=== PATIENT | female | born 1995 | race Caucasian/White ===

== ENCOUNTER → 2018-12-19 | Outpatient (CLI) | payer BC ==
[~2018-12-19] MED LIST: ALBU90OI; AMOX875 PO; ASPI81CH PO; CYCL10 PO; ESCI10 PO; FLUT110OIA; HYDACE5 PO; HYDR1TAB94 PO; IBUP800 PO; LETR2.5 PO; METF500 PO; NAPR500 PO; Norco 5-325 Ta1 EACH PO; PROM25 PO; Percocet 5-3251 EACH PO; Prenatabs FA T1 EACH PO; SERT25 PO; SPIR50 PO; Ventolin/Prove6.7 GM INH; Verotin-Gr Cap1 EACH PO
== END | disposition home or self-care (01) ==
LOC: LAB SHORT 15:24 → LAB 15:24
PROVIDERS: Nurse Practitioner Obstetrics & Gynecology
DX: O60.03 Preterm labor without delivery, third trimester (principal)
CPT/HCPCS: 82731

== ENCOUNTER 2019-02-06 20:23 | Inpatient (IN) | payer BC, OTHER ==
[~2019-02-06] VITALS: Ht 160 cm; Wt 85.0 kg
[2019-02-06] MEDS ORDERED: Verotin-Gr Cap1 EACH PO (20:35)
[2019-02-06 20:45] LABS: BASOPHILS ABSOLUTE AUTO 0.02 K/mm3 (0.00-0.23); BASOPHILS PERCENT AUTO 0 % (0-2); EOSINOPHILS ABSOLUTE AUTO 0.13 K/mm3 (0.00-0.68); EOSINOPHILS PERCENT AUTO 1 % (0-6); Hemoglobin 12.5 g/dL (11.5-16.0); IMMATURE GRAN ABSOLUTE AUTO 0.04 K/mm3 (0.00-0.10); IMMATURE GRAN PERCENT AUTO 0 % (0-1); LYMPHOCYTES ABSOLUTE AUTO 2.05 K/mm3 (0.84-5.20); LYMPHOCYTES PERCENT AUTO 18 % (21-46); MONOCYTES ABSOLUTE AUTO 0.55 K/mm3 (0.16-1.47); MONOCYTES PERCENT AUTO 5 % (4-13); NEUTROPHILS ABSOLUTE AUTO 8.73 K/mm3 (1.96-9.15); NEUTROPHILS PERCENT AUTO 76 % (41-73); Platelet Count 116 K/mm3 (150-400); White Blood Cell Count 11.52 K/mm3 (4.00-11.30)
[2019-02-06 21:02] LABS: Hematocrit 40.7 % (33.0-51.0); Mean Corpuscular HGB 24.8 pg (26.0-34.0); Mean Corpuscular HGB Conc 30.7 g/dL (31.5-36.5); Mean Corpuscular Volume 81 fL (80-100); Red Blood Cell Count 5.05 M/mm3 (3.80-5.20)
[2019-02-06 21:05] LABS: Alanine Aminotransfer (ALT/SGP 16 U/L (12-78); Albumin, Blood 2.9 g/dL (3.4-5.0); Albumin/Globulin Ratio 0.8 (0.8-1.8); Alk Phos 172 U/L (50-136); Anion Gap 8 mmol/L (6-16); Aspartate Aminotrans (AST/SGOT 15 U/L (12-37); Bilirubin, Direct <0.1 mg/dL (0.0-0.3); Bilirubin, Indirect Unable to Calculate mg/dL (0.1-0.7); Bilirubin, Total 0.2 mg/dL (0.1-1.0); Blood Urea Nitrogen 5 mg/dL (8-24); Bun/Creatinine Ratio 15.6 (12.0-20.0); CO2, Blood 22 mmol/L (21-32); Calcium, Blood 8.9 mg/dL (8.5-10.1); Chloride, Blood 109 mmol/L (98-108); Creatinine, Blood 0.32 mg/dL (0.40-1.00); Globulin, Blood 3.8 g/dL (2.2-4.0); Glomerular Filtration Rate >60 (60-); Glucose, Blood 105 mg/dL (70-99); Potassium, Blood 3.4 mmol/L (3.5-5.5); Sodium, Blood 139 mmol/L (136-145); Total Protein, Blood 6.7 g/dL (6.4-8.2)
--- NOTE | 2019-02-07 11:00 | NUR ---
MY LABOR TEACHING DONE. PT ON BALL WITH LOTS OF SUPPORT, HER SO, MOM, SISTER, AND MOTHER IN [place]. DISCUSSED PATERNITY PAPERWORK, SHE HAS RECENTLY FINALIZED HER DIVORCE IN [place]. AWARE THAT THEY CAN'T SIGN PATERNITY. STATE CARD GIVEN FOR INFO AFTER BABY IS BORN. NANETTE HUMPHRIES IS INVOLVED. PT IS BEING INDUCED FOR MILD GEST HYPERTENSION, 24 HOUR URINE AROUND 200. PLANS AN EPIDURAL. PLANS BRF. AWATING WONDERLY VISIT TO DECIDE TO START PITOCIN OR PLACE ANOTHER CYTOTEC.
[2019-02-09 05:33] LABS: BASOPHILS ABSOLUTE AUTO 0.03 K/mm3 (0.00-0.23); BASOPHILS PERCENT AUTO 0 % (0-2); EOSINOPHILS ABSOLUTE AUTO 0.01 K/mm3 (0.00-0.68); EOSINOPHILS PERCENT AUTO 0 % (0-6); Hemoglobin 11.4 g/dL (11.5-16.0); IMMATURE GRAN ABSOLUTE AUTO 0.07 K/mm3 (0.00-0.10); IMMATURE GRAN PERCENT AUTO 0 % (0-1); LYMPHOCYTES ABSOLUTE AUTO 1.32 K/mm3 (0.84-5.20); LYMPHOCYTES PERCENT AUTO 7 % (21-46); MONOCYTES ABSOLUTE AUTO 0.84 K/mm3 (0.16-1.47); MONOCYTES PERCENT AUTO 5 % (4-13); NEUTROPHILS ABSOLUTE AUTO 15.82 K/mm3 (1.96-9.15); NEUTROPHILS PERCENT AUTO 87 % (41-73); Platelet Count 112 K/mm3 (150-400); White Blood Cell Count 18.09 K/mm3 (4.00-11.30)
[2019-02-09 05:36] LABS: Hematocrit 37.7 % (33.0-51.0); Mean Corpuscular HGB Conc 30.2 g/dL (31.5-36.5); Mean Corpuscular Volume 79 fL (80-100); Red Blood Cell Count 4.75 M/mm3 (3.80-5.20)
--- NOTE | 2019-02-09 11:57 | NUR ---
DISCUSEED BOARDER STATUS WITH PATIENT PT VERBALIZES UNDERSTANDING THAT SHE WILL DISCHARGED TODAY, BUT WILL REMAIN IN ROOM WITH HER NB WHO WILL REMAIN A PT. RX FOR 800MG IBUPROFEN GIVEN TO PT TO HAVE FAMILY MEMBER FILL FOR HER.
[2019-02-09] MEDS ORDERED: IBUP800 PO (14:43)
--- NOTE | 2019-02-09 19:02 | NUR ---
REPORT TO LALO POWELL
== END 2019-02-09 22:08 | disposition home or self-care (01) | DRG 807 ==
LOC: BC 20:23
PROVIDERS: ADMIT Obstetrics & Gynecology
PROC: 10E0XZZ Delivery of Products of Conception, External Approach (ICD-10-PCS; principal; 2019-02-08)
PROC: 3E0P7VZ Introduction of Hormone into Female Reproductive, Via Natural or Artificial Opening (ICD-10-PCS; 2019-02-08)
PROC: 10907ZC Drainage of Amniotic Fluid, Therapeutic from Products of Conception, Via Natural or Artificial Opening (ICD-10-PCS; 2019-02-08)
PROC: 3E0R3BZ Introduction of Anesthetic Agent into Spinal Canal, Percutaneous Approach (ICD-10-PCS; 2019-02-08)
DX: O13.4 Gestational [pregnancy-induced] hypertension without significant proteinuria, complicating childbirth (principal); Z37.0 Single live birth; O99.02 Anemia complicating childbirth; D50.9 Iron deficiency anemia, unspecified; Z3A.39 39 weeks gestation of pregnancy
CPT/HCPCS: 36415; 51702; 80053; 82248; 85025; A9270; J1885; J2001; J2405; J2590; J3010; J7120

== ENCOUNTER → 2020-10-12 | Outpatient (CLI) | payer OTHER ==
[2020-10-12 13:16] LABS: BASOPHILS ABSOLUTE AUTO 0.03 K/mm3 (0.00-0.23); BASOPHILS PERCENT AUTO 0 % (0-2); EOSINOPHILS ABSOLUTE AUTO 0.05 K/mm3 (0.00-0.68); EOSINOPHILS PERCENT AUTO 1 % (0-6); Hematocrit 46.8 % (33.0-51.0); Hemoglobin 15.2 g/dL (11.5-16.0); IMMATURE GRAN ABSOLUTE AUTO 0.02 K/mm3 (0.00-0.10); IMMATURE GRAN PERCENT AUTO 0 % (0-1); LYMPHOCYTES ABSOLUTE AUTO 1.55 K/mm3 (0.84-5.20); LYMPHOCYTES PERCENT AUTO 19 % (21-46); MONOCYTES ABSOLUTE AUTO 0.27 K/mm3 (0.16-1.47); MONOCYTES PERCENT AUTO 3 % (4-13); Mean Corpuscular HGB Conc 32.5 g/dL (31.5-36.5); Mean Corpuscular Volume 89 fL (80-100); Mean Platelet Volume 10.8 fL (9.1-12.4); NEUTROPHILS ABSOLUTE AUTO 6.22 K/mm3 (1.96-9.15); NEUTROPHILS PERCENT AUTO 77 % (41-73); Platelet Count 208 K/mm3 (150-400); RDW Coefficient Variation 13.2 % (11.7-14.2); RDW Standard Deviation 43.3 fL (35.1-46.3); Red Blood Cell Count 5.24 M/mm3 (3.80-5.20); White Blood Cell Count 8.14 K/mm3 (4.00-11.30)
[2020-10-12 13:55] LABS: Alanine Aminotransfer (ALT/SGP 22 U/L (12-78); Albumin, Blood 4.5 g/dL (3.4-5.0); Albumin/Globulin Ratio 1.3 (0.8-1.8); Alk Phos 43 U/L (40-126); Anion Gap 12 mmol/L (6-16); Aspartate Aminotrans (AST/SGOT 11 U/L (12-37); Bilirubin, Total 0.5 mg/dL (0.1-1.0); Blood Urea Nitrogen 6 mg/dL (8-24); CO2, Blood 27 mmol/L (21-32); Calcium, Blood 9.3 mg/dL (8.5-10.1); Chloride, Blood 104 mmol/L (98-108); Creatinine, Blood 0.46 mg/dL (0.40-1.00); Globulin, Blood 3.5 g/dL (2.2-4.0); Glomerular Filtration Rate >60 (60-); Glucose, Blood 90 mg/dL (70-99); Potassium, Blood 3.6 mmol/L (3.5-5.5); Sodium, Blood 143 mmol/L (136-145)
== END | disposition home or self-care (01) ==
LOC: LAB SHORT 13:10 → PLD 13:10
PROVIDERS: General Practice
DX: R89.1 Abnormal level of hormones in specimens from other organs, systems and tissues (principal)
CPT/HCPCS: 80053; 84702; 85025

== ENCOUNTER → 2021-06-08 | Outpatient (CLI) | payer OTHER ==
[2021-06-10 14:10] LABS: CHLAMYDIA BY NAA Negative (Negative); GONOCOCCUS BY NAA Negative (Negative); TRICH VAG BY NAA Negative (Negative)
== END | disposition home or self-care (01) ==
LOC: LAB SHORT 15:17
PROVIDERS: Family Medicine
DX: Z11.3 Encounter for screening for infections with a predominantly sexual mode of transmission (principal)
CPT/HCPCS: 87491; 87591; 87661

== ENCOUNTER → 2022-01-28 | Outpatient (CLI) | payer OTHER | LOC: LAB 17:55 → LAB SHORT 17:55 | DX: Z32.01 Encounter for pregnancy test, result positive (principal) | CPT/HCPCS: 84702 ==

== ENCOUNTER → 2022-02-02 | Outpatient (CLI) | payer OTHER | LOC: LAB 14:48 → LAB SHORT 14:48 | DX: Z34.01 Encounter for supervision of normal first pregnancy, first trimester (principal) | CPT/HCPCS: 84702 ==

== ENCOUNTER 2022-02-08 02:39 | Emergency (ER) | payer OTHER ==
[~2022-02-08] VITALS: Ht 160 cm; Wt 61.2 kg
[2022-02-08] MEDS ORDERED: AZIT250 PO (04:20)
== END 2022-02-08 04:40 | disposition home or self-care (01) ==
LOC: ER 02:39
DX: H66.92 Otitis media, unspecified, left ear (principal); Z87.891 Personal history of nicotine dependence
CPT/HCPCS: 99282; A9270

== ENCOUNTER → 2022-03-10 | Outpatient (CLI) | payer OTHER ==
[~2022-03-10] MED LIST changes: +AZIT250 PO
[2022-03-12 04:08] LABS: CHLAMYDIA TRACHOMATIS, NAA Negative (Negative)
== END | disposition home or self-care (01) ==
LOC: LAB SHORT 12:00 → LAB 12:00
PROVIDERS: Registered Nurse Community Health
DX: Z34.91 Encounter for supervision of normal pregnancy, unspecified, first trimester (principal)
CPT/HCPCS: 87070; 87077; 87186; 87205; 87491; 87591

== ENCOUNTER → 2022-04-13 | Outpatient (CLI) | payer OTHER ==
[2022-04-14 08:10] LABS: HIV AB/P24 AG SCREEN Non Reactive (Non Reactive)
== END | disposition home or self-care (01) ==
LOC: LAB 09:50 → LAB SHORT 09:50
PROVIDERS: Registered Nurse Community Health
DX: Z34.91 Encounter for supervision of normal pregnancy, unspecified, first trimester (principal)
CPT/HCPCS: 84443; 87389

== ENCOUNTER → 2022-07-21 | Outpatient (CLI) | payer OTHER ==
[2022-07-21 12:19] LABS: Hematocrit 37.5 % (33.0-51.0); Hemoglobin 12.2 g/dL (11.5-16.0)
== END | disposition home or self-care (01) ==
LOC: LAB SHORT 11:31 → LAB 11:31
PROVIDERS: Registered Nurse Community Health
DX: Z34.91 Encounter for supervision of normal pregnancy, unspecified, first trimester (principal)
CPT/HCPCS: 82950; 85014; 85018

== ENCOUNTER → 2022-09-14 | Outpatient (CLI) | payer OTHER | END | disposition home or self-care (01) | LOC: LAB SHORT 16:13 | DX: Z34.91 Encounter for supervision of normal pregnancy, unspecified, first trimester (principal) | CPT/HCPCS: 87081; 87150 ==

== ENCOUNTER 2022-10-04 05:01 | Inpatient (IN) | payer OTHER ==
[~2022-10-04] VITALS: Ht 160 cm; Wt 79.0 kg
[2022-10-04] MEDS ORDERED: ALBU2.5V5 INH (05:39)
[2022-10-04] MEDS ORDERED: FOLI1 PO (05:40)
[2022-10-04 05:44] LABS: BASOPHILS ABSOLUTE AUTO 0.05 K/mm3 (0.00-0.23); BASOPHILS PERCENT AUTO 0 % (0-2); EOSINOPHILS ABSOLUTE AUTO 0.34 K/mm3 (0.00-0.68); EOSINOPHILS PERCENT AUTO 2 % (0-6); Hematocrit 37.2 % (33.0-51.0); IMMATURE GRAN ABSOLUTE AUTO 0.07 K/mm3 (0.00-0.10); IMMATURE GRAN PERCENT AUTO 1 % (0-1); LYMPHOCYTES ABSOLUTE AUTO 2.81 K/mm3 (0.84-5.20); LYMPHOCYTES PERCENT AUTO 20 % (21-46); MONOCYTES ABSOLUTE AUTO 0.43 K/mm3 (0.16-1.47); MONOCYTES PERCENT AUTO 3 % (4-13); Mean Corpuscular HGB 26.1 pg (26.0-34.0); Mean Corpuscular HGB Conc 32.3 g/dL (31.5-36.5); Mean Corpuscular Volume 81 fL (80-100); Mean Platelet Volume 12.3 fL (9.1-12.4); NEUTROPHILS ABSOLUTE AUTO 10.41 K/mm3 (1.96-9.15); NEUTROPHILS PERCENT AUTO 74 % (41-73); Platelet Count 138 K/mm3 (150-400); RDW Coefficient Variation 14.6 % (11.7-14.2); RDW Standard Deviation 42.9 fL (35.1-46.3); Red Blood Cell Count 4.59 M/mm3 (3.80-5.20); White Blood Cell Count 14.11 K/mm3 (4.00-11.30)
[2022-10-05 06:51] LABS: Hematocrit 37.7 % (33.0-51.0); Hemoglobin 12.1 g/dL (11.5-16.0); Mean Corpuscular HGB 26.2 pg (26.0-34.0); Mean Corpuscular HGB Conc 32.1 g/dL (31.5-36.5); Mean Corpuscular Volume 82 fL (80-100); Mean Platelet Volume 12.2 fL (9.1-12.4); Platelet Count 136 K/mm3 (150-400); RDW Coefficient Variation 14.6 % (11.7-14.2); RDW Standard Deviation 43.2 fL (35.1-46.3); Red Blood Cell Count 4.61 M/mm3 (3.80-5.20); White Blood Cell Count 16.32 K/mm3 (4.00-11.30)
[2022-10-05] MEDS ORDERED: IBUP800 PO (08:12)
--- NOTE | 2022-10-05 18:22 | NUR ---
dc home with SO and baby. choose to ambluate out.
== END 2022-10-05 18:20 | disposition home or self-care (01) | DRG 807 ==
LOC: OBS 05:01 → BC 05:07 → OBS 05:11 → BC 05:13
PROVIDERS: ADMIT Registered Nurse Community Health
PROC: 10E0XZZ Delivery of Products of Conception, External Approach (ICD-10-PCS; principal; 2022-10-04)
PROC: 10907ZC Drainage of Amniotic Fluid, Therapeutic from Products of Conception, Via Natural or Artificial Opening (ICD-10-PCS; 2022-10-04)
PROC: 3E0R3BZ Introduction of Anesthetic Agent into Spinal Canal, Percutaneous Approach (ICD-10-PCS; 2022-10-04)
PROC: 00HU33Z Insertion of Infusion Device into Spinal Canal, Percutaneous Approach (ICD-10-PCS; 2022-10-04)
DX: O24.420 Gestational diabetes mellitus in childbirth, diet controlled (principal); Z37.0 Single live birth; O76 Abnormality in fetal heart rate and rhythm complicating labor and delivery; Z3A.39 39 weeks gestation of pregnancy; Z98.890 Other specified postprocedural states; Z79.899 Other long term (current) drug therapy
CPT/HCPCS: 36415; 51702; 82947; 85025; 85027; 86850; 86900; 86901; A9270; J1885; J2405; J2590; J7120

== ENCOUNTER → 2023-08-03 | Outpatient (CLI) | payer OTHER ==
[~2023-08-03] MED LIST changes: +ALBU2.5V5 INH; +FOLI1 PO
[2023-08-05 03:37] LABS: APTIMA MEDIA TYPE Urine; C. TRACHOMATIS BY TMA Negative (Negative); N. GONORRHOEAE BY TMA Negative (Negative); SPECIMEN SOURCE Urine
== END ==
LOC: LAB 14:27 → LAB SHORT 14:27
PROVIDERS: Registered Nurse Community Health
DX: Z34.91 Encounter for supervision of normal pregnancy, unspecified, first trimester (principal)
CPT/HCPCS: 87491; 87591

== ENCOUNTER → 2023-12-08 | Outpatient (CLI) | payer OTHER ==
[2023-12-08 13:01] LABS: Hematocrit 38.2 % (33.0-51.0); Hemoglobin 12.2 g/dL (11.5-16.0)
== END ==
LOC: LAB 10:00 → LAB SHORT 10:00
PROVIDERS: Registered Nurse Community Health
DX: Z34.83 Encounter for supervision of other normal pregnancy, third trimester (principal)
CPT/HCPCS: 82950; 85014; 85018

== ENCOUNTER → 2024-01-31 | Outpatient (CLI) | payer OTHER | LOC: LAB SHORT 11:39 → LAB 11:39 | DX: Z34.93 Encounter for supervision of normal pregnancy, unspecified, third trimester (principal) | CPT/HCPCS: 87081; 87150 ==

== ENCOUNTER 2024-02-22 07:04 | Inpatient (IN) | payer OTHER ==
[2024-02-22] VITALS (43 sets, daily range): BP systolic 97–164; BP diastolic 53–90
[~2024-02-22] VITALS: Ht 160 cm; Wt 84.5 kg
[2024-02-22] MEDS ORDERED: Misoprostol 200 MCG Tab XX PRN (07:45)
[2024-02-22] MEDS ORDERED: FentaNYL 2mcg/ml-Bup 0.1% Epd 250 ML EPI PRN (07:45)
[2024-02-22] MEDS ORDERED: Methylergonovine Maleate 0.2MG / ML 1ML Amp IM PRN ×2 (07:45→17:35)
[2024-02-22] MEDS ORDERED: Oxytocin 10 Unit / ML Vial IM PRN (07:45)
[2024-02-22] MEDS ORDERED: Lactated Ringer's 1,000 ML IV SCH ×4 (07:45→17:40)
[2024-02-22] MEDS ORDERED: Misoprostol 200 MCG Tab PR PRN ×2 (07:45→17:35)
[2024-02-22] MEDS ORDERED: Tranexamic Acid 100 ML IV SCH (07:45)
[2024-02-22] MEDS ORDERED: ePHEDrine Sulfate 50 MG/ML 1ML Injection XX PRN (07:45)
[2024-02-22] MEDS ORDERED: OXYTOCIN/RINGER'S LACTATE 500 ML IV SCH ×3 (07:45→17:30)
[2024-02-22] MEDS ORDERED: Carboprost Tromethamine 250 MCG/ML 1ML Amp IM PRN (07:45)
[2024-02-22] MEDS ORDERED: Calcium Carbonate 500 MG Tab Chew PO PRN (07:50)
[2024-02-22] MEDS ORDERED: Acetaminophen 500 MG Tab PO PRN (07:50)
[2024-02-22] MEDS ORDERED: Ondansetron HCl 2 MG / ML 2ML Vial IV PRN (07:50)
[2024-02-22 08:01] LABS: BASOPHILS ABSOLUTE AUTO 0.03 K/mm3 (0.00-0.23); BASOPHILS PERCENT AUTO 0 % (0-2); EOSINOPHILS ABSOLUTE AUTO 0.23 K/mm3 (0.00-0.68); EOSINOPHILS PERCENT AUTO 2 % (0-6); Hematocrit 38.2 % (33.0-51.0); Hemoglobin 12.1 g/dL (11.5-16.0); IMMATURE GRAN ABSOLUTE AUTO 0.05 K/mm3 (0.00-0.10); IMMATURE GRAN PERCENT AUTO 0 % (0-1); LYMPHOCYTES PERCENT AUTO 19 % (21-46); MONOCYTES ABSOLUTE AUTO 0.67 K/mm3 (0.16-1.47); MONOCYTES PERCENT AUTO 5 % (4-13); Mean Corpuscular HGB 25.8 pg (26.0-34.0); Mean Corpuscular HGB Conc 31.7 g/dL (31.5-36.5); Mean Corpuscular Volume 81 fL (80-100); Mean Platelet Volume 12.6 fL (9.1-12.4); NEUTROPHILS ABSOLUTE AUTO 10.03 K/mm3 (1.96-9.15); NEUTROPHILS PERCENT AUTO 74 % (41-73); Platelet Count 137 K/mm3 (150-400); RDW Coefficient Variation 14.8 % (11.7-14.2); Red Blood Cell Count 4.69 M/mm3 (3.80-5.20); White Blood Cell Count 13.61 K/mm3 (4.00-11.30)
[2024-02-22] MEDS ORDERED: FentaNYL Citrate 50 MCG/ML 2 ML Injection ONE (13:55)
[2024-02-22] MEDS ORDERED: Acetaminophen 325 MG TABLET PO PRN (17:30)
[2024-02-22] MEDS ORDERED: Acetaminophen/Codeine 300-30 mg PO PRN (17:30)
[2024-02-22] MEDS ORDERED: Diphth,Pertuss(Acell),Tet Vac 0.5 ML VIAL IM SCH (17:30)
[2024-02-22] MEDS ORDERED: Benzocaine Topical Anesthetic Spray 60GM TOP PRN (17:30)
[2024-02-22] MEDS ORDERED: Docusate Sodium 100 MG Cap PO PRN (17:30)
[2024-02-22] MEDS ORDERED: Oxytocin 10 Unit / ML Vial IM ONE (17:30)
[2024-02-22] MEDS ORDERED: Measles/Mumps/Rubella Vaccine 0.5 ML Vial SC SCH (17:35)
[2024-02-22] MEDS ORDERED: Lanolin Cream TOP PRN (17:35)
[2024-02-22] MEDS ORDERED: OxyCODONE 5 mg/Acetamin 325 mg TABLET PO PRN (17:35)
[2024-02-22] MEDS ORDERED: Rho(D) Immune Globulin 300 MCG / SYR IM ONE (17:35)
[2024-02-22] MEDS ORDERED: Witch Hazel/Glycerin PADS TOP PRN (17:40)
[2024-02-22] MEDS ORDERED: Ibuprofen 400 MG Tab PO PRN (17:40)
[2024-02-22] MEDS ORDERED: Ketorolac Tromethamine 30mg Vial IV PRN (18:00)
[2024-02-22] MEDS ORDERED: Ketorolac Tromethamine 30mg Vial IV ONE (18:00)
[2024-02-23 05:49] LABS: Hematocrit 36.4 % (33.0-51.0); Hemoglobin 11.5 g/dL (11.5-16.0); Mean Corpuscular HGB 26.1 pg (26.0-34.0); Mean Corpuscular HGB Conc 31.6 g/dL (31.5-36.5); Mean Corpuscular Volume 83 fL (80-100); Mean Platelet Volume 12.4 fL (9.1-12.4); Platelet Count 132 K/mm3 (150-400); RDW Coefficient Variation 14.9 % (11.7-14.2); RDW Standard Deviation 45.1 fL (35.1-46.3); Red Blood Cell Count 4.41 M/mm3 (3.80-5.20); White Blood Cell Count 15.97 K/mm3 (4.00-11.30)
[2024-02-23 05:50] VITALS: BP 100/57
[2024-02-23 08:18] VITALS: BP 113/68
[2024-02-23] MEDS ORDERED: Prenatal Vit/FE Fumarate/FA 1 Tab PO SCH (09:00)
[2024-02-23 12:01] VITALS: BP 124/82
== END 2024-02-23 17:20 | disposition home or self-care (01) | DRG 806 ==
LOC: BC 07:04 → OBS 07:04 → BC 07:20
PROVIDERS: ADMIT Registered Nurse Community Health
PROC: 10E0XZZ Delivery of Products of Conception, External Approach (ICD-10-PCS; principal; 2024-02-22)
PROC: 10907ZC Drainage of Amniotic Fluid, Therapeutic from Products of Conception, Via Natural or Artificial Opening (ICD-10-PCS; 2024-02-22)
PROC: 3E0R3BZ Introduction of Anesthetic Agent into Spinal Canal, Percutaneous Approach (ICD-10-PCS; 2024-02-22)
PROC: 00HU33Z Insertion of Infusion Device into Spinal Canal, Percutaneous Approach (ICD-10-PCS; 2024-02-22)
DX: O24.420 Gestational diabetes mellitus in childbirth, diet controlled (principal); O47.1 False labor at or after 37 completed weeks of gestation; Z37.0 Single live birth; Z3A.39 39 weeks gestation of pregnancy; O99.52 Diseases of the respiratory system complicating childbirth; J45.909 Unspecified asthma, uncomplicated; O76 Abnormality in fetal heart rate and rhythm complicating labor and delivery; O69.81X0 Labor and delivery complicated by cord around neck, without compression, not applicable or unspecified; O32.6XX0 Maternal care for compound presentation, not applicable or unspecified; Z79.51 Long term (current) use of inhaled steroids
CPT/HCPCS: 36415; 51702; 59025; 76815; 85025; 85027; 86850; 86900; 86901; 99214; A9270; J1885; J2590; J7120